=== PATIENT | female | born 1965 | race Caucasian/White ===

== ENCOUNTER 2017-12-24 09:46 | Outpatient (CLI) ==
--- NOTE | 2017-12-25 10:02 | MAMMO ---
EXAM: Digital screening mammogram with 3-D tomosynthesis and CAD HISTORY: Screening mammogram. COMPARISON: Mammogram 08/28/2013 FINDINGS: Breast density is heterogeneously dense which may obscure small masses. There is no new or suspicious calcification. Benign right breast calcification is present. There is no new nodule or calcification. There has been no significant interval change. IMPRESSION: No new or suspicious calcification or nodule. Recommendations: Annual screening mammogram. BIRADS category II: Benign findings
== END 2017-12-24 09:47 | disposition home or self-care (01) ==
LOC: RAD 09:46
PROVIDERS: ATTEND Internal Medicine
DX: Z12.31 Encounter for screening mammogram for malignant neoplasm of breast (principal)
CPT/HCPCS: 77067

== ENCOUNTER 2019-02-09 10:06 | Outpatient (CLI) ==
--- NOTE | 2019-02-09 11:44 | MAMMO ---
EXAM: Digital screening mammogram with tomosynthesis HISTORY: Screening COMPARISON: 12/25/2017 FINDINGS: Digital MLO and CC views of the right and left breast were performed. Tomosynthesis was performed. Computer aided detection utilized. There are scattered fibroglandular densities. There is no evidence for mass, asymmetry, distortion, or suspicious calcifications in either breast. IMPRESSION: 1. No evidence of malignancy in the right or left breast. 2. Annual screening mammogram is recommended in one year. BIRADS category 1, negative examination
== END 2019-02-09 10:07 | disposition home or self-care (01) ==
LOC: RAD 10:06
PROVIDERS: ATTEND Internal Medicine
DX: Z12.31 Encounter for screening mammogram for malignant neoplasm of breast (principal)